=== PATIENT | female | born 1935 | race Native Hawaiian/Other Pacific Islander ===

== ENCOUNTER 2017-04-19 14:43 | Outpatient (CLI) | payer OTHER ==
[~2017-04-19 14:43] MED LIST: ALBUTEROL0.083 % IN; ALPR0.2566 PO; AMBIEN CR12.5 MG PO; ASPIR-8181 MG PO; BENA20TA2 PO; CRESTOR20 MG PO; DOCU100C10 PO; FURO40TA93 PO; HYDR-2748 PO; LOPERAMIDE2 M1 OR; METF500T PO; METO50TA63 PO; OMEGA 3340 MG OR; PRILOSEC40 MG OR; PROZAC20 MG OR; SINGULAIR10 MG PO; SPIRIVA IN; TRAZODONE150 MG PO; TRICOR145 MG PO; Z-PAK PO; ZOLP10TA2 PO
== END 2017-04-19 16:00 | disposition home or self-care (01) ==
LOC: MAMMO 14:43
DX: Z12.31 Encounter for screening mammogram for malignant neoplasm of breast (principal)
CPT/HCPCS: G0202-TC

== ENCOUNTER 2017-12-04 08:32 | Outpatient (CLI) | payer OTHER | END 2017-12-04 19:03 | disposition home or self-care (01) | LOC: CT 08:32 | DX: K43.2 Incisional hernia without obstruction or gangrene (principal) | CPT/HCPCS: 36415; 82565; 84520; Q9963 ==

== ENCOUNTER 2018-06-07 16:41 | Outpatient (CLI) | payer OTHER | END 2018-06-07 19:50 | disposition home or self-care (01) | LOC: CT 16:41 | DX: G31.84 Mild cognitive impairment of uncertain or unknown etiology (principal); G25.2 Other specified forms of tremor ==

== ENCOUNTER 2020-01-21 13:37 | Outpatient (CLI) | payer OTHER | END 2020-01-21 22:33 | disposition home or self-care (01) | LOC: RAD 13:37 | DX: M19.041 Primary osteoarthritis, right hand (principal); M19.042 Primary osteoarthritis, left hand; M19.071 Primary osteoarthritis, right ankle and foot; M19.072 Primary osteoarthritis, left ankle and foot ==

== ENCOUNTER 2020-04-19 21:56 | Inpatient (IN) | payer OTHER ==
[2020-04-19] VITALS (9 sets, daily range): BP systolic 54–96; BP diastolic 29–48; TEMP 98.3
[~2020-04-19] VITALS: Ht 154.9 cm; Wt 57.3 kg
[2020-04-19 22:23] LABS: PLATELET COUNT 422 K/uL (152-353)
[2020-04-19 22:42] LABS: POTASSIUM 4.7 mmol/L (3.6-5.2); SODIUM 137 mmol/L (136-145)
[2020-04-19 23:03] LABS: PARTIAL THROMBOPLASTIN TIME 26.9 SECONDS (24.5-33.6)
[2020-04-20] VITALS (7 sets, daily range): BP systolic 111–183; BP diastolic 56–66; TEMP 98.5–99.5; Ht 154.9 cm; Wt 57.3 kg
[2020-04-20] MEDS ORDERED: CELEBREX200 MG PO (02:22)
[2020-04-20] MEDS ORDERED: AMLODIPINE BESYLATE PO (02:23)
[2020-04-20] MEDS ORDERED: NITR0.4S2 SL (02:26)
[2020-04-20] MEDS ORDERED: TIZANIDINE HYDRO4 MG PO ×2 (02:27→18:20)
[2020-04-20] MEDS ORDERED: HEMOCYTE PLS PO (02:28)
[2020-04-20] MEDS ORDERED: DULOXETINE HCL30 MG PO (02:30)
[2020-04-20] MEDS ORDERED: ENDOCET1 TA1 PO (02:36)
[2020-04-20] MEDS ORDERED: XANAX XR0.5 MG PO (02:39)
[2020-04-20 05:35] LABS: PLATELET COUNT 386 K/uL (152-353)
[2020-04-20 06:02] LABS: POTASSIUM 4.3 mmol/L (3.6-5.2); SODIUM 141 mmol/L (136-145)
[2020-04-20] MEDS ORDERED: TRICOR145 M1 PO (17:13)
[2020-04-20] MEDS ORDERED: DULOXETINE HYDR60 MG PO (17:43)
[2020-04-20] MEDS ORDERED: BENICAR20 MG PO (17:59)
[2020-04-20] MEDS ORDERED: VITAMIN D2000 UNI3 PO (17:59)
[2020-04-20] MEDS ORDERED: FAMOTIDINE20 MG PO (18:00)
[2020-04-20] MEDS ORDERED: LEVO0.0529 PO (18:02)
[2020-04-20] MEDS ORDERED: PANTOPRAZOLE 40MG TA PO (18:03)
[2020-04-20] MEDS ORDERED: PRIMIDONE50 M1 PO (18:10)
[2020-04-20] MEDS ORDERED: MEMANTINE HYDRO10 MG PO (18:11)
[2020-04-20] MEDS ORDERED: AMBIEN5 MG PO (18:13)
[2020-04-20] MEDS ORDERED: NEURONTIN 100M100 MG PO (18:14)
[2020-04-20] MEDS ORDERED: METAXALONE800 MG PO (18:15)
[2020-04-20] MEDS ORDERED: HYDR5TAB9 PO (18:19)
[2020-04-20 19:15] LABS: POTASSIUM 5.6 mmol/L (3.6-5.2)
[2020-04-21] VITALS: BP 164/66; TEMP 98.3
[2020-04-21 04:00] VITALS: BP 171/68; TEMP 99.2
[2020-04-21 05:39] LABS: PLATELET COUNT 393 K/uL (152-353)
[2020-04-21 05:50] LABS: POTASSIUM 4.1 mmol/L (3.6-5.2)
[2020-04-21 08:00] VITALS: BP 171/70; TEMP 99
[2020-04-21 12:00] VITALS: BP 131/75; TEMP 99.3
[2020-04-21 16:00] VITALS: BP 158/75; TEMP 99.5
[2020-04-21 20:00] VITALS: BP 158/69; TEMP 100.1
[2020-04-22 00:09] VITALS: BP 181/83; TEMP 99.7
[2020-04-22 04:00] VITALS: BP 187/86; TEMP 99.2
[2020-04-22 08:00] VITALS: BP 147/72; TEMP 98.7
[2020-04-22 12:00] VITALS: BP 122/65; TEMP 98.5
[2020-04-22] MEDS ORDERED: LEVAQUIN250 MG PO (12:31)
== END 2020-04-22 15:00 | disposition home or self-care (01) | DRG 193 ==
LOC: ED 21:56 → MED/SURG 04-20 00:06
PROVIDERS: Family Medicine; ADMIT Internal Medicine
DX: J18.8 Other pneumonia, unspecified organism (principal); G92 Toxic encephalopathy; N17.8 Other acute kidney failure; I95.89 Other hypotension; R41.82 Altered mental status, unspecified; I78.0 Hereditary hemorrhagic telangiectasia; E11.9 Type 2 diabetes mellitus without complications; G89.4 Chronic pain syndrome; S00.83XA Contusion of other part of head, initial encounter; W01.0XXA Fall on same level from slipping, tripping and stumbling without subsequent striking against object, initial encounter; Y92.230 Patient room in hospital as the place of occurrence of the external cause
CPT/HCPCS: 36415; 36416; 80048; 80053; 82533; 82550; 82553; 82570; 82948; 83880; 84300; 84443; 84484; 85027; 85379; 85610; 85730; 93005; 94760; 96360; 96361; 96365; 96366; 99284; J1956; J2270; J3490

== ENCOUNTER 2020-08-04 09:44 | Emergency (ER) | payer OTHER ==
[~2020-08-04] VITALS: Ht 154.9 cm; Wt 49.9 kg
[2020-08-04 09:44] VITALS: TEMP 99.2
[~2020-08-04 09:44] MED LIST changes: +AMBIEN5 MG PO; +AMLODIPINE BESYLATE PO; +BENICAR20 MG PO; +CELEBREX200 MG PO; +DULOXETINE HCL30 MG PO; +DULOXETINE HYDR60 MG PO; +ENDOCET1 TA1 PO; +FAMOTIDINE20 MG PO; +HEMOCYTE PLS PO; +HYDR5TAB9 PO; +LEVAQUIN250 MG PO; +LEVO0.0529 PO; +MEMANTINE HYDRO10 MG PO; +METAXALONE800 MG PO; +NEURONTIN 100M100 MG PO; +NITR0.4S2 SL; +PANTOPRAZOLE 40MG TA PO; +PRIMIDONE50 M1 PO; +TIZANIDINE HYDRO4 MG PO; +TRICOR145 M1 PO; +VITAMIN D2000 UNI3 PO; +XANAX XR0.5 MG PO
[2020-08-04 14:00] VITALS: BP 159/79
== END 2020-08-04 14:09 | disposition home or self-care (01) ==
LOC: ED 09:52
DX: S00.83XA Contusion of other part of head, initial encounter (principal); S09.8XXA Other specified injuries of head, initial encounter; R07.89 Other chest pain; W06.XXXA Fall from bed, initial encounter; Y92.098 Other place in other non-institutional residence as the place of occurrence of the external cause
CPT/HCPCS: 90715; 93005; 96372; 96375; 99284; J1885; J2175; J2405